=== PATIENT | female | born 1995 | race African-American/Black ===

== ENCOUNTER 2023-07-07 13:34 | Emergency (ER) | payer SELFPAY ==
--- OUTSIDE RECORDS SUMMARY | 2023-07-07 13:38 | XMS REPORT | Continuity of Care Document ---
Author Name Unknown Address [address] [facility] [address] [place] [address] [facility] thconnect Address [address] [facility] [place] [address] Care Team Providers Care Cone Sewer Name Role Phone Pcp, Patient Does Not Have A Primary Care Physic pedro Butch Paniagua P Attending Clinician Unavailable GENARO KAY Attending Clinician Unavailabl chely [id number] Attending Clinician Unavailable [id number] Attending Clinician Unavailable MADELIN RAMIREZ Attending Clinician UnavailPATRICIA Velazco Attending Clinician Unavailable ALFONSO WRAY Attending Clinician Unavailable MD RUBEN Attending Clinician Unavailab le TESTING, [facility] JOSE RAMOS Attending Clinicia angelina Unavailable ALISSA RAMOS Attending Clinician DAREN Colvin Attending Clinician Unavaila ble [id number] Attending Clinician Unavailable RONI OSULLIVAN Attending Clinician Brii bryan Osullivan MD, Roni Izaguirre Attending Clinician [id number] Attending Clinician Unavailable Sandy PERSAUD, Alissaalethea Olmedo Attending Clinician [phone]- [phone] VITALY ZARCO Attending Clinician Unavailable Heriberto [employer]OVER, Sarah Attending Clinician [phone] Doctor Unassigned, [place] Attending Clinician U ivy Kimball [employer]OVER, Luh Attending Clinician [phone] Lab, Adc Fam Pob I Attending Clinician Unavailab aura KNOX, Sharon Attending Clinician [phone] SHARON SIERRA Attending Clinician Unavailable Physician, No Primary or Family Admitting Clinic pedro Unavailable Payers Payer Name Policy Type Policy Number Effective Date Expirati on Date Source ALLIED BENEFIT [id number] 2019 00:00:00 [facility] 2 [id number] 2023 00:00:00 [facility]-ALLIED BENEFITS SYS/PPO 2 [id number] 2021 00:00:00 Problems Condition Name Condition Details Condition Category Status Onset Date Resolution Date Last Treatment Date Treating Clinician Comments Source 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 6 00:00: 00 Jennifer Ibarraold - Externa l PCOS (polycysti c ovarian syndrome) PCOS (polycysti c ovarian syndrome) Disease Active 07-26 00:00: 00 Jennifer Seybold - Externa l Class 1 obesity with serious comorbidit y and body mass index (BMI) of 34.0 to 34.9 in adult Class 1 obesity with serious comorbidit y and body mass index (BMI) of 34.0 to 34.9 in adult Disease Active 07-26 00:00: 00 Jennifer Ibarraold - Externa l No known active problems No known active problems Disease [facility] Allergies, Adverse Reactions, Alerts Allergy Name Allergy Type Status Severity Reaction(s) Onset Date Inactive Date Treating Clinician Comments Source No Known Allergie s DA Active U 06-01 00:00: 00 [facility] NO KNOWN ALLERGIE S Drug Class Active [facility] Social History Social Habit Start Date Stop Date Quantity Comments Source Gender identity Shahana Rose - External Sexual orientation U [facility] Alcohol intake 2023-04-10 00:00:00 2023-04-10 00:00:00 Current drinker of alcohol (finding) Jennifer Rose - External Exposure to SARS-CoV-2 (event) 2022-08-11 00:00:00 2022-08-21 11:15:00 Not sure Jennifer Rose - External History of Social function 2022-08-21 00:00:00 2022-08-21 00:00:00 Jennifer Rose - External Tobacco use and exposure 2021-10-19 00:00:00 2021-10-19 00:00:00 Smokeless tobacco non-user Jennifer Rose - External Tobacco Comment 2021-07-26 00:00:00 2021-07-26 00:00:00 Pt state vaps Jennifer Rose Sex Assigned At 1995 00:00:00 1995 00[birth year]00:00 F Jennifer Rose - External Smoking Status Start Date Stop Date Source Never smoked tobacco Jennifer Rose - External Tobacco smoking consumption unknown [facility] Medications Ordered Medication Name Filled Medication Name Start Date Stop Date Current Medication? Ordering Clinician Indication Dosage Frequency Signature (SIG) Comments Components Source FLUTICASONE PROPIONATE, NASAL, 50 MCG/ACT nasal Suspension 04-10 00:00: 00 Yes [id number] 50ug Use 1 spray (50 mcg total) in each nostril daily. Jennifer jimenez Azelastine HCl 0.1 % nasal Solution 04-10 00:00: 00 Yes [id number] 1{spray } Use 1 spray in each nostril 2 times daily. Jennifer May Externa tony Norethindro ne Acet-Ethiny l Est (MICROGESTI N) 1-20 MG-MCG oral Tablet 2022-02 00:00: 00 Yes [id number] 1{tbl} Take 1 tablet by mouth daily. Jennifer jimenez Spironolact one 50 MG oral Tablet 2022-02 00:00: 00 Yes [id number] 50mg Take 1 tablet (50 mg total) by mouth daily. Jennifer jimenez Spironolact one 50 MG oral Tablet 2022-02 00:00: 00 Yes [id number] 50mg Take 1 tablet (50 mg total) by mouth daily. Jennifer jimenez Norethindro ne Acet-Ethiny l Est (MICROGESTI N) 1-20 MG-MCG oral Tablet 2022-02 00:00: 00 Yes [id number] 1{tbl} Take 1 tablet by mouth daily. Jennifer jimenez Spironolact one 25 MG oral Tablet 2022-02 00:00: 00 02-22 00:00 :00 No 25mg Take 1 tablet (25 mg total) by mouth daily. Jennifer jimenez Norethindro ne Acet-Ethiny l Est (MICROGESTI N) 1-20 MG-MCG oral Tablet 2022-02 00:00: 00 02-22 00:00 :00 No [id number] 1{tbl} Take 1 tablet by mouth daily. Jennifer jimenez Spironolact one 25 MG oral Tablet 07-21 00:00: 00 Yes [id number] 104 25mg Take 1 tablet (25 mg total) by mouth daily Jennifer jimenez Norethindro ne Acet-Ethiny l Est 1-20 MG-MCG oral Tablet 07-21 00:00: 00 Yes [id number] 1{tbl} Take 1 tablet by mouth daily Jennifer jimenez FLUTICASONE PROPIONATE, NASAL, 50 MCG/ACT nasal Suspension 2021-02 00:00: 00 07-21 00:00 :00 No 50ug Use 1 spray (50 mcg total) in each nostril daily Jennifer jimenez Nirmatrelvi r & Ritonavir STANDARD (30) (300/100) Therapy Pack 2021-02 00:00: 07-21 00:00 :00 No Take two 150 mg nirmatrelv ir (pink) tablets with one 100 mg ritonavir (white) tablet by mouth two times daily for 5 days Jennifer jimenez FLUTICASONE PROPIONATE, NASAL, 50 MCG/ACT nasal Suspension 2021-02 00:00: 00 Yes [id number] 50ug Use 1 spray (50 mcg total) in each nostril daily Jennifer jimenez Pseudoeph-B romphen-DM (Bromfed DM) 30-2-10 MG/5ML oral Syrup 2021-02 00:00: 00 Yes [id number] 10mL Q.25D Take 10 mL by mouth 4 times daily as needed Jennifer jimenez guaiFENesin -Codeine 100-10 MG/5ML oral Syrup 2021-02 00:00: 00 07-21 00:00 :00 No 5mL [id number] 3D Take 5 mL by mouth 3 times daily as needed for cough Jennifer jimenez Norethin-Et h Estrad-Fe Biphas (Lo Loestrin Fe) 1 MG-10 MCG / 10 MCG oral Tablet 2021-02 00:00: 00 07-21 00:00 :00 No [id number] 1{tbl} Take 1 tablet by mouth daily Jennifer jimenez Norethin-Et h Estrad-Fe Biphas (Lo Loestrin Fe) 1 MG-10 MCG / 10 MCG oral Tablet 10-19 00:00: 00 01-25 00:00 :00 No [id number] 1{tbl} Take 1 tablet by mouth daily Jennifer jimenez ibuprofen (IBU) tablet 800 mg 10-20 19:30: 00 10-20 18:23 :00 No 800mg 800 mg, Oral, ONCE, 1 dose, 10/21/19 at 1430, AMOS [facility] ondansetron (ZOFRAN-ODT ) disintegrat ing tablet 4 mg 10-20 19:15: 00 10-20 18:23 :00 No 4mg 4 mg, Oral, ONCE, 1 dose, Tu10/21/19 at 1415, Routine [facility] ibuprofen 800 mg tablet 10-20 00:00: 00 Yes [id number] 800mg Take 1 tablet by mouth every 6 (six) hours as needed for Pain (scale 4-6). [facility] ondansetron 4 mg disintegrat ing tablet 10-20 00:00: 00 Yes [id number] 4mg Take 1 tablet by mouth every 8 (eight) hours as needed for Nausea and Vomiting (N/V). [facility] Norethin-Et h Estrad-Fe Biphas (LO LOESTRIN FE OR) 07-18 00:00: 00 Yes [id number] Jennifer Rose Immunizations Ordered Immunization Name Filled Immunization Name Date Status Comments Source HPV 9 (Human Papillomavirus) 2022-06-09 00:00:00 Completed Jennifer Rose - External HPV 9 (Human Papillomavirus) 2022-06-09 00:00:00 Completed Jennifer Ibarraold - External HPV 9 (Human Papillomavirus) 2022-05-09 00:00:00 Completed Jennifer Rose - External HPV 9 (Human Papillomavirus) 2022-05-09 00:00:00 Completed Jennifer Rose - External Influenza Virus Vaccine, Quad, Egg Free 2021-12-18 00:00:00 Completed Jennifer Rose - External Tdap- (Boostrix, Adacel) 2021-12-18 00:00:00 Completed Jennifer Ibarraold - External Influenza Virus Vaccine, Unspecified Formulation 2021-12-18 00:00:00 Completed Jennifer Ibarraold - External Influenza Virus Vaccine, Quad, Egg Free 2021-12-18 00:00:00 Completed Jennifer Rose - External Tdap- (Boostrix, Adacel) 2021-12-18 00:00:00 Completed Jennifer Ibarraold - External Influenza Virus Vaccine, Unspecified Formulation 2021-12-18 00:00:00 Completed Jennifer Rose - External Meningococcal Vaccine- Conjugate(Menactra) 2017-07-29 00:00:00 Completed Jennifer Weissybold - External Meningococcal Vaccine- Conjugate(Menactra) 2017-07-29 00:00:00 Completed Jennifer Weissybold - External HEPATITIS A- PEDI/ADOL 2011-10-19 00:00:00 Completed Jennifer Ibarraold - External HPV 4 (Human Papillomavirus) 2011-10-19 00:00:00 Completed Jennifer Seybold - External HEPATITIS A- PEDI/ADOL 2011-10-19 00:00:00 Completed Jennifer Weissybold - External HPV 4 (Human Papillomavirus) 2011-10-19 00:00:00 Completed Jennifer Weissybold - External HEPATITIS A- PEDI/ADOL 2010-10-10 00:00:00 Completed Jennifer Weissybold - External Tdap- (Boostrix, Adacel) 2010-10-10 00:00:00 Completed Jennifer Weissybold - External Meningococcal Vaccine- Conjugate(Menactra) 2010-10-10 00:00:00 Completed Jennifer Weissybold - External HEPATITIS A- PEDI/ADOL 2010-10-10 00:00:00 Completed Jennifer Rose - External Tdap- (Boostrix, Adacel) 2010-10-10 00:00:00 Completed Jennifer Weissybold - External Meningococcal Vaccine- Conjugate(Menactra) 2010-10-10 00:00:00 Completed Jennifer Seybold - External DTaP Unspecified 2001-02-28 00:00:00 Completed Jennifer Seybold - External IPV- Inactivated Polio Vaccine 2001-02-28 00:00:00 Completed Jennifer Weissybold - External MMR- Measles, Mumps, Rubella 2001-02-28 00:00:00 Completed Jennifer Seybold - External DTaP Unspecified 2001-02-28 00:00:00 Completed Jennifer Seybold - External IPV- Inactivated Polio Vaccine 2001-02-28 00:00:00 Completed Jennifer Seybold - External MMR- Measles, Mumps, Rubella 2001-02-28 00:00:00 Completed Jennifer Seybold - External Varicella Vaccine 2000-10-25 00:00:00 Completed Jennifer Seybold - External Varicella Vaccine 2000-10-25 00:00:00 Completed Jennifer Seybold - External Varicella Vaccine 1999-10-11 00:00:00 Completed Jennifer Seybold - External Varicella Vaccine 1999-10-11 00:00:00 Completed Jennifer Seybold - External Hib (HbOC) 1998-07-20 00:00:00 Completed Jennifer Seybold - External DTaP Unspecified 1998-07-20 00:00:00 Completed Jennifer Seybold - External MMR- Measles, Mumps, Rubella 1998-07-20 00:00:00 Completed Jennifer Seybold - External Hib (HbOC) 1998-07-20 00:00:00 Completed Jennifre Seybold - External DTaP Unspecified 1998-07-20 00:00:00 Completed Jennifer Seybold - External MMR- Measles, Mumps, Rubella 1998-07-20 00:00:00 Completed Jennifer Seybold - External Hib (HbOC) 1997 00:00:00 Completed Jennifer Seybold - External Hepatitis B, Adolescent Or Pediatric 1995 00:00:00 Completed Jennifer Seybold - External DTaP Unspecified 1997 00:00:00 Completed Jennifer Seybold - External IPV- Inactivated Polio Vaccine 1997 00:00:00 Completed Jennifer Seybold - External Hib (HbOC) 1997 00:00:00 Completed Jennifer Seybold - External Hepatitis B, Adolescent Or Pediatric 1995 00:00:00 Completed Jennifer Seybold - External DTaP Unspecified 1997 00:00:00 Completed Jennifer Seybold - External IPV- Inactivated Polio Vaccine 1997 00:00:00 Completed Jennifer Seybold - External Hib (HbOC) 1997 00:00:00 Completed Jennifer Seybold - External DTaP Unspecified 1997 00:00:00 Completed Jennifer Seybold - External IPV- Inactivated Polio Vaccine 1997 00:00:00 Completed Jennifer Seybold - External Hib (HbOC) 1997 00:00:00 Completed Jennifer Seybold - External DTaP Unspecified 1997 00:00:00 Completed Jennifer Seybold - External IPV- Inactivated Polio Vaccine 1997 00:00:00 Completed Jennifer Seybold - External Hib (HbOC) 1997 00:00:00 Completed Jennifer Seybold - External Hepatitis B, Adolescent Or Pediatric 1997 00:00:00 Completed Jennifer Seybold - External DTaP Unspecified 1997 00:00:00 Completed Jennifer Seybold - External IPV- Inactivated Polio Vaccine 1997 00:00:00 Completed Jennifer Seybold - External Hib (HbOC) 1997 00:00:00 Completed Jennifer Weissybold - External Hepatitis B, Adolescent Or Pediatric 1995 00:00:00 Completed Jennifer Seybold - External DTaP Unspecified 1997 00:00:00 Completed Jennifer Weissybold - External IPV- Inactivated Polio Vaccine 1997 00:00:00 Completed Jennifer Weissybold - External Hepatitis B, Adolescent Or Pediatric 1995 00:00:00 Completed Jennifer Seybold - External Hepatitis B, Adolescent Or Pediatric 1997 00:00:00 Completed Jennifer Weissybold - External Varicella Vaccine Unknown Completed [place] Seybold - External Varicella Vaccine Unknown Completed [place] Seybold - External Tdap- (Boostrix, Adacel) Unknown Completed Jennifer Seybold - External Tdap- (Boostrix, Adacel) Unknown Completed Jennifer Weissybold - External IPV- Inactivated Polio Vaccine Unknown Completed Jennifer Seybold - External IPV- Inactivated Polio Vaccine Unknown Completed Jennifer Seybold - External IPV- Inactivated Polio Vaccine Unknown Completed Jennifer Weissybold - External IPV- Inactivated Polio Vaccine Unknown Completed Jennifer eWissybold - External MMR- Measles, Mumps, Rubella Unknown Completed Jennifer Seybold - External MMR- Measles, Mumps, Rubella Unknown Completed Jennifer Seybold - External Meningococcal Vaccine- Conjugate(Menactra) Unknown Completed Jennifer Gandhi eybold - External Meningococcal Vaccine- Conjugate(Menactra) Unknown Completed Jennifer S eybold - External Influenza Virus Vaccine, Unspecified Formulation Unknown Completed Jennifer Seybold - External HPV 9 (Human Papillomavirus) Unknown Completed Jennifer Seybo ld - External HPV 9 (Human Papillomavirus) Unknown Completed Jennifer ybo ld - External HPV 4 (Human Papillomavirus) Unknown Completed Jennifer Weissybo ld - External Hib (HbOC) Unknown Completed Jennifer Se ybold - External Hib (HbOC) Unknown Completed Jennifer Se ybold - External Hib (HbOC) Unknown Completed Jennifer Se ybold - External Hib (HbOC) Unknown Completed Jennifer Se ybold - External Hepatitis B, Adolescent Or Pediatric Unknown Completed Jennifer Seybold - External Hepatitis B, Adolescent Or Pediatric Unknown Completed Jennifer Seybold - External Hepatitis B, Adolescent Or Pediatric Unknown Completed Jennifer Seybold - External HEPATITIS A- PEDI/ADOL Unknown Completed Jennifer Seybold - External HEPATITIS A- PEDI/ADOL Unknown Completed Jennifer Seybold - External Influenza Virus Vaccine, Quad, Egg Free Unknown Completed Jennifer Seybold - External DTaP Unspecified Unknown Completed Julio sey Seybold - External DTaP Unspecified Unknown Completed Julio sey Seybold - External DTaP Unspecified Unknown Completed Julio sey Seybold - External DTaP Unspecified Unknown Completed Jluio sey Seybold - External DTaP Unspecified Unknown Completed Julio sey Seybold - External Varicella Vaccine Unknown Completed [place] Seybold - External Varicella Vaccine Unknown Completed [place] Seybold - External Tdap- (Boostrix, Adacel) Unknown Completed Jennifer Seybold - External Tdap- (Boostrix, Adacel) Unknown Completed Jennifer Seybold - External IPV- Inactivated Polio Vaccine Unknown Completed Jennifer Seybold - External IPV- Inactivated Polio Vaccine Unknown Completed Jennifer Seybold - External IPV- Inactivated Polio Vaccine Unknown Completed Jennifer Seybold - External IPV- Inactivated Polio Vaccine Unknown Completed Jennifer ybold - External MMR- Measles, Mumps, Rubella Unknown Completed Jennifer Seybold - External MMR- Measles, Mumps, Rubella Unknown Completed Jennifer Seybold - External Meningococcal Vaccine- Conjugate(Menactra) Unknown Completed Jennifer S eybold - External Meningococcal Vaccine- Conjugate(Menactra) Unknown Completed Jennifer S eybold - External Influenza Virus Vaccine, Unspecified Formulation Unknown Completed Jennifer Seybold - External HPV 9 (Human Papillomavirus) Unknown Completed Jennifer Seybo ld - External HPV 9 (Human Papillomavirus) Unknown Completed Jennifer ybo ld - External HPV 4 (Human Papillomavirus) Unknown Completed Jennifer ybo ld - External Hib (HbOC) Unknown Completed Jennifer Se ybold - External Hib (HbOC) Unknown Completed Jennifer Se ybold - External Hib (HbOC) Unknown Completed Jennifer Se ybold - External Hib (HbOC) Unknown Completed Jennifer Se ybold - External Hepatitis B, Adolescent Or Pediatric Unknown Completed Jennifer Seybold - External Hepatitis B, Adolescent Or Pediatric Unknown Completed Jennifer Seybold - External Hepatitis B, Adolescent Or Pediatric Unknown Completed Jennifer Seybold - External HEPATITIS A- PEDI/ADOL Unknown Completed Jennifer Seybold - External HEPATITIS A- PEDI/ADOL Unknown Completed Jennifer Seybold - External Influenza Virus Vaccine, Quad, Egg Free Unknown Completed Jennifer Seybold - External DTaP Unspecified Unknown Completed Julio sey Seybold - External DTaP Unspecified Unknown Completed Julio sey Seybold - External DTaP Unspecified Unknown Completed Julio sey Seybold - External DTaP Unspecified Unknown Completed Julio sey Seybold - External DTaP Unspecified Unknown Completed Julio sey Seybold - External Varicella Vaccine Unknown Completed [place] Seybold - External Varicella Vaccine Unknown Completed [place] Seybold - External Tdap- (Boostrix, Adacel) Unknown Completed Jennifer Seybold - External Tdap- (Boostrix, Adacel) Unknown Completed Jennifer Seybold - External IPV- Inactivated Polio Vaccine Unknown Completed Jennifer Seybold - External IPV- Inactivated Polio Vaccine Unknown Completed Jennifer Seybold - External IPV- Inactivated Polio Vaccine Unknown Completed Jennifer Seybold - External IPV- Inactivated Polio Vaccine Unknown Completed Jennifer Seybold - External MMR- Measles, Mumps, Rubella Unknown Completed Jennifer Seybold - External MMR- Measles, Mumps, Rubella Unknown Completed Jennifer Seybold - External Meningococcal Vaccine- Conjugate(Menactra) Unknown Completed Jennifer S eybold - External Meningococcal Vaccine- Conjugate(Menactra) Unknown Completed Jennifer S eybold - External Influenza Virus Vaccine, Unspecified Formulation Unknown Completed Jennifer Seybold - External HPV 9 (Human Papillomavirus) Unknown Completed Jennifer Seybo ld - External HPV 9 (Human Papillomavirus) Unknown Completed Jennifer ybo ld - External HPV 4 (Human Papillomavirus) Unknown Completed Jennifer ybo ld - External Hib (HbOC) Unknown Completed Jennifer Se ybold - External Hib (HbOC) Unknown Completed Jennifer Se ybold - External Hib (HbOC) Unknown Completed Jennifer Se ybold - External Hib (HbOC) Unknown Completed Jennifer Se ybold - External Hepatitis B, Adolescent Or Pediatric Unknown Completed Jennifer Seybold - External Hepatitis B, Adolescent Or Pediatric Unknown Completed Jennifer Seybold - External Hepatitis B, Adolescent Or Pediatric Unknown Completed Jennifer Seybold - External HEPATITIS A- PEDI/ADOL Unknown Completed Jennifer Seybold - External HEPATITIS A- PEDI/ADOL Unknown Completed Jennifer Weissybold - External Influenza Virus Vaccine, Quad, Egg Free Unknown Completed Jennifer Seybold - External DTaP Unspecified Unknown Completed Julio weissy Seybold - External DTaP Unspecified Unknown Completed Julio sey Seybold - External DTaP Unspecified Unknown Completed Julio sey Seybold - External DTaP Unspecified Unknown Completed Julio sey Seybold - External DTaP Unspecified Unknown Completed Julio weissy Seybold - External Vital Signs Vital Name Observation Time Observation Value Comments S ource Systolic blood pressure 2023-02-22 16:48:00 110 mm[Hg] Jennifer Seybo ld - External Diastolic blood pressure 2023-02-22 16:48:00 80 mm[Hg] Jennifer Seybo ld - External Heart rate 2023-02-22 16:48:00 73 /min Kelse y Seybold - External Body temperature 2023-02-22 16:48:00 36.78 Kristine Jennifer Seybold - External Respiratory rate 2023-02-22 16:48:00 16 /min Jennifer Seybold - External Body height 2023-02-22 16:48:00 165.1 cm Shahana ey Seybold - External Body weight 2023-02-22 16:48:00 95.8 kg Shahana ey Seybold - External BMI 2023-02-22 16:48:00 35.15 kg/m2 Shahana ey Seybold - External Systolic blood pressure 2022-08-21 16:18:00 110 mm[Hg] Jennifer Seybo ld - External Diastolic blood pressure 2022-08-21 16:18:00 58 mm[Hg] Jennifer Seybo ld - External Heart rate 2022-08-21 16:18:00 98 /min Kelse y Seybold - External Body temperature 2022-08-21 16:18:00 37.06 Kristine Jennifer Seybold - External Respiratory rate 2022-08-21 16:18:00 24 /min Jennifer Seybold - External Body height 2022-08-21 16:18:00 165.1 cm Shahana ey Seybold - External Body weight 2022-08-21 16:18:00 93.441 kg Shahana ey Seybold - External BMI 2022-08-21 16:18:00 34.28 kg/m2 Shahana ey Seybold - External Systolic blood pressure 2022-07-21 15:26:00 114 mm[Hg] Jennifer Seybo ld - External Diastolic blood pressure 2022-07-21 15:26:00 74 mm[Hg] Jennifer Seybo ld - External Heart rate 2022-07-21 15:26:00 70 /min Kelse y Seybold - External Body temperature 2022-07-21 15:26:00 36.11 Kristine Jennifer Seybold - External Respiratory rate 2022-07-21 15:26:00 18 /min Jennifer Seybold - External Body height 2022-07-21 15:26:00 165.1 cm Shahana ey Seybold - External Body weight 2022-07-21 15:26:00 97.977 kg Shahana ey Seybold - External BMI 2022-07-21 15:26:00 35.94 kg/m2 Shahana ey Seybold - External Systolic blood pressure 2022-01-25 14:47:00 113 mm[Hg] Jennifer Seybo ld - External Diastolic blood pressure 2022-01-25 14:47:00 76 mm[Hg] Jennifer Seybo ld - External Heart rate 2022-01-25 14:47:00 78 /min Kelse y Seybold - External Body temperature 2022-01-25 14:47:00 36.5 Kristine Jennifer Seybold - External Respiratory rate 2022-01-25 14:47:00 16 /min Jennifer Seybold - External Body height 2022-01-25 14:47:00 165.1 cm Shahana ey Seybold - External Body weight 2022-01-25 14:47:00 94.802 kg Shahana ey Seybold - External BMI 2022-01-25 14:47:00 34.78 kg/m2 Shahana ey Seybold - External Systolic blood pressure 2021-07-26 15:52:00 106 mm[Hg] Jennifer avelar Diastolic blood pressure 2021-07-26 15:52:00 70 mm[Hg] Jennifer avelar Heart rate 2021-07-26 15:52:00 88 /min Shawna Rose Body temperature 2021-07-26 15:52:00 36.56 Kristine Jennifer Rose Respiratory rate 2021-07-26 15:52:00 18 /min Jennifer Rose Body height 2021-07-26 15:52:00 165.1 cm Shahana Rose Body weight 2021-07-26 15:52:00 93.169 kg Shahana Rose BMI 2021-07-26 15:52:00 34.18 kg/m2 Shahana Rose Oxygen saturation in Arterial blood by Pulse oximetry 2021-07-26 15:52:00 98 /min Jennifer avelar Systolic blood pressure 2019-10-21 19:32:28 129 mm[Hg] [facility] Diastolic blood pressure 2019-10-21 19:32:28 92 mm[Hg] [facility] Heart rate 2019-10-21 19:32:28 98 /min [facility] Respiratory rate 2019-10-21 19:32:28 17 /min [facility] Oxygen saturation in Arterial blood by Pulse oximetry 2019-10-21 19:32:28 99 /min [facility] Body temperature 2019-10-21 17:55:00 36.89 Kristine [facility] Body height 2019-10-21 17:55:00 165.1 cm [facility] Body weight 2019-10-21 17:55:00 93.895 kg [facility] BMI 2019-10-21 17:55:00 34.45 kg/m2 [facility] Procedures Procedure Date / Time Performed Performing Clinicia n Source NOTICE OF PRIVACY PRACTICES 2019-10-21 17:41:04 Doctor Unassigned, [place] [facility] CONSENT/REFUSAL FOR DIAGNOSIS AND TREATMENT 2019-10-21 17:40:43 Doctor Unassigned, [place] [facility] Encounters Start Date/Time End Date/Time Encounter Type Admission Type Attending Clinicians Care Facility Care Department Encounter ID Source 2020-12-24 14:25:25 Emergency [facility] [id number] [facility] 2023-06-02 13:28:00 2023-06-02 16:07:00 Emergency Butch Downing [facility] CARTER [id number] [facility] 2023-05-19 00:00:00 2023-05-19 00:00:00 Outpatient GENARO KAY [id number] [facility] 2023-05-09 16:15:00 2023-05-09 16:15:00 Outpatient GENARO KAY [id number] [facility] 2023-05-03 14:40:00 2023-05-03 14:40:00 Outpatient LAB47 JENNIFER BASILIO [id number] [facility] 2023-05-01 14:30:00 2023-05-01 14:30:00 Outpatient LAB08 JENNIFER BASILIO [id number] [facility] 2023-05-01 13:45:00 2023-05-01 13:45:00 Outpatient LAB08 JENNIFER BASILIO [id number] [facility] 2023-04-23 14:45:00 2023-04-23 14:45:00 Outpatient GENARO KAY [id number] [facility] 2023-04-19 09:45:00 2023-04-19 09:45:00 Outpatient MADELIN RAMIREZ [id number] [facility] 2023-04-18 10:15:00 2023-04-18 10:15:00 Outpatient PATRICIA ORLANDO [id number] [facility] 2023-04-10 13:30:00 2023-04-10 13:30:00 Outpatient ALFONSO WRAY [id number] [facility] 2023-03-26 11:00:00 2023-03-26 11:00:00 Outpatient GENARO KAY [id number] [facility] 2023-02-22 11:45:00 2023-02-22 11:45:00 Outpatient LAB08 JENNIFER JENNIFER [id number] [facility] 2023-02-22 10:45:00 2023-02-22 10:45:00 Outpatient ELIZAGENARO ORTIZ JENNIFER [id number] [facility] 2023-01-16 00:00:00 2023-01-16 00:00:00 Outpatient ELIZA, GENARO JENNIFER JENNIFER [id number] [facility] 2022-10-26 00:00:00 2022-10-26 00:00:00 Outpatient MD JENNIFER SINGH [id number] [facility] 2022-10-26 00:00:00 2022-10-26 00:00:00 Outpatient ELIZA, GENARO JENNIFER BASILIO [id number] [facility] 2022-10-19 00:00:00 2022-10-19 00:00:00 Outpatient ELIZA, GENARO JENNIFER BASILIO [id number] [facility] 2022-09-28 00:00:00 2022-09-28 00:00:00 Outpatient ELIZA, GENARO JENNIFER BASILIO [id number] [facility] 2022-08-21 11:45:00 2022-08-21 11:45:00 Outpatient LAB08 JENNIFER BASILIO [id number] [facility] 2022-08-21 11:15:00 2022-08-21 11:15:00 Outpatient ELIZA, GENARO JENNIFER BASILIO [id number] [facility] 2022-07-21 10:30:00 2022-07-21 10:30:00 Outpatient ELIZA, GENARO JENNIFER BASILIO [id number] [facility] 2022-07-21 00:00:00 2022-07-21 00:00:00 Outpatient ELIZA, GENARO JENNIFER BASILIO [id number] [facility] 2022-02-23 15:40:00 2022-02-23 15:40:00 [facility] BAS[facility] [id number] [facility] 2022-02-23 10:30:00 2022-02-23 10:30:00 Outpatient ALISSA RAMOS JENNIFER BASILIO [id number] [facility] 2022-02-23 00:00:00 2022-02-23 00:00:00 Outpatient DAREN ALLEN JENNIFER BASILIO [id number] [facility] 2022-01-25 09:40:00 2022-01-25 09:40:00 Outpatient GSA81-KIY JENNIFER BASILIO [id number] [facility] 2022-01-25 09:00:00 2022-01-25 09:00:00 Outpatient LING-SMI AHSAN, RONI BASILIO [id number] [facility] 2022-01-18 15:45:00 2022-01-18 15:45:00 Outpatient JENNIFER BASILIO [id number] [facility] 2022-01-11 11:00:00 2022-01-11 11:00:00 Outpatient JENNIFER BASILIO [id number] [facility] 2022-01-04 15:45:00 2022-01-04 15:45:00 Outpatient OKORAALISSA ARREDONDO [id number] [facility] 2021-12-30 00:00:00 2021-12-30 00:00:00 Outpatient LING-SMI THRONI [id number] [facility] 2021-12-30 00:00:00 2021-12-30 00:00:00 Outpatient MD JENNIFER SINGH [id number] [facility] 2021-12-26 14:30:00 2021-12-26 14:30:00 Outpatient LAB47 JENNIFER BASILIO [id number] [facility] 2021-12-06 11:15:00 2021-12-06 11:15:00 Outpatient OKORAARNULFO, ALISSAAlethea BASILIO [id number] [facility] 2021-10-19 14:15:00 2021-10-19 14:30:00 Office Visit Ling-Smi thRoni [id number] [facility] 2021-09-14 08:00:00 2021-09-14 08:00:00 Outpatient JENNIFER BASILIO [id number] [facility] 2021-08-10 14:50:00 2021-08-10 14:50:00 Outpatient LAB JENNIFER JENNIFER [id number] [facility] 2021-07-26 11:35:00 2021-07-26 11:35:00 Outpatient LAB47 JENNIFER BASILIO [id number] [facility] 2021-07-26 11:30:00 2021-07-26 11:30:00 Outpatient JIP64-SLB JENNIFER JENNIFER [id number] [facility] 2021-07-26 10:45:00 2021-07-26 11:15:00 Office Visit Alissa Ramos 1.0.114 350.1.13.13 [id number] [id number] [facility] 2021-07-20 12:00:00 2021-07-20 12:00:00 Outpatient VITALY ZARCO [id number] [facility] 2021-07-20 11:00:00 2021-07-20 11:00:00 Outpatient VITALY ZARCO [id number] [facility] 2019-10-21 12:56:00 2019-10-21 15:05:00 Emergency LouisSarah hanley [facility] [id number] [id number] [facility] 2019-10-21 00:00:00 2019-10-21 00:00:00 Orders Only Doctor Unassigned, [place] [facility] 1.840.114 350.1.13.10 [id number] [id number] [facility] 2019-09-10 00:00:00 2019-09-10 00:00:00 Patient Secure Msg Doctor Unassigned, [place] [facility] OFFICE [facility] ONE 1.114 350.1.13.10 [id number] [id number] [facility] 2019-09-10 00:00:00 2019-09-10 00:00:00 Telephone Luh Kimball [facility] Office Building One 1.114 350.1.13.10 [id number] [id number] [facility] 2019-09-09 07:26:10 2019-09-09 07:46:10 Laboratory Only Lab, [facility] One [id number] [id number] [id number] [id number] [facility] 2019-09-09 07:20:00 2019-09-09 07:20:00 Outpatient SHARON CARLSON [facility] [id number] [facility] 2019-09-09 00:00:00 2019-09-09 00:00:00 Letter (Out) Doctor Unassigned, [employer] [facility] 1.84.114 350.1.13.10 [id number] [id number] [facility] 2019-09-08 11:20:00 2019-09-08 11:20:00 Outpatient SHARON CARLSON [facility] [id number] [facility] Results Test Description Test Time Test Comments Results Result Co mments Source INFLUENZA A B [id number] 08:46:00* Test Item Value Reference Range Interpretation Comme nts POC INFLUENZA A ANTIGEN (test code = EDINFLAGA) Negative Negative POC INFLUENZA B ANTIGEN (test code = EDINFLAGB) Negative Negative Testing Performe d at:[facility] 18/[address], [place] [address] ----- POC COVID19 [id number] 08:46:00* Test Item Value Reference Range Interpretation Comme nts POC COVID19 AG (test code = [id number]) Negative Negative Testing Perfo rmed at:[facility] 24/ [address], [place] [address] - Notes Date/Time Note Provider Source 2023-06-02 14:21:00 [id number] 19-06-05T14:21:00 [facility] REPORTREPORT#:[id number] REPORT STATUS: SignedDATE:06/02/23 TIME: 1421 PATIENT: ALONZO MARIANO UNIT #: [id number]#: [id number] ROOM/BED:AGE: 28 SEX: F PCP PHYS: No Primary or Family PhysicianSERVICE AUTHOR: Butch Paniagua MD * ALL edits or amendments must be made on the electronic/computer document * ZLQ-Czf-Hzbr Illness GeneralInitial Greet Date/Time 06/02/23 1338 PresentationChief Complaint Nasal congestion, Sore throat, stuff right ear Free Text HPI NotesFree Text HPI NotesSeveral days possible allergies as well as stuffy right ear mild sore throat which is better no fever Review of Systems Free Text ROS NotesFree Text ROS NotesConstitutional: No fever or chills; no malaise HEENT: No Headache, no earache but some vague decreased hearing stiffness right ear, mild sore throat which is improved, no eye complaints. Chest: No cough, no shortness of breath, no chest pain. Abdomen: No abdominal pain. No nausea, vomiting, or diarrhea. : No dysuria or pelvic complaints. Extremities: No leg swelling or leg pain. No upper extremity pain or swelling. Skin: No rash. No erythema. Neuro: No acute weakness, numbness or other new neuro complaints. Psych: No suicidal ideation; Thought content normal. Past Medical History - AdultStated Complaint FLU LIKE SYMPTOMSAllergiesCoded Allergies:No Known Allergies (06/02/23) Calculated Suicide Risk (nurs) No riskSmoking status for patients 13 years old or older: Never Smoker Physical Exam Vital SignsVital SignsFirst Documented: Result Date Time Pulse Ox 100 06/01 1330 B/P 137/89 / 1330 B/P Mean 105 04/ 1330 O2 Delivery Room air 06/01 1330 Temp 36.8 06/01 1330 Pulse 101 04/ 1330 Resp 16 06/01 1330 Last Documented: Result Date Time Pulse Ox 100 06/01 1330 B/P 137/89 / 1330 B/P Mean 105 /06 1330 O2 Delivery Room air / 1330 Temp 36.8 06/01 1330 Pulse 101 04/ 1330 Resp 16 06 1330 Review of Vital Signs Reviewed Focused PEGeneral/Const General/Const Awake, AlertEyes Eyes No photophobia, No scleral icterus, Conjunctiva NL, Cornea clearEars/Nose/Throat Ears/Nose/Throat Pharynx NL Text/Dict NotesRight TM retracted no erythema no effusion; some nasal congestionMS Neck Neck Supple, No meningismus, No adenopathyResp/Chest Respiratory/Chest Breath sounds NL, Breath sounds = bilat, No respiratory distress, No rales, No rhonchi, No wheezing, No retractionsCardiovascular Cardiovascular Regular rhythm, Heart sounds NL, No gallop, No murmursAbdomen/GI Abdomen/GI Soft, Non-tenderSkin Skin No rashNeurologic Neurologic Speech NL Interpretation Diagnostics Lab Results InterpretationResultsMicrobiology: Date/Time Procedure - Status Source Growth 06/01 1425 Group A Streptococcus Culture - RECD THROAT Re-Evaluation [facility] ED CourseMedication(s) OrderedMedication(s) Ordered:Hormones And Synthetic Substit Sig/Bhavin Start time Last Medication Dose Route Stop Time Status Admin Prednisone 40 MG X1ED STA 06/01 1556 DC / PO 06/01 1557 1604 Patient Discharge Departure Vital Signs/ConditionVital SignsFirst Documented: Result Date Time Pulse Ox 100 06/01 1330 B/P 137/89 04/ 1330 B/P Mean 105 /06 1330 O2 Delivery Room air / 1330 Temp 36.8 04/ 1330 Pulse 101 04/06 1330 Resp 16 / 1330 Last Documented: Result Date Time Pulse Ox 100 06/01 1330 B/P 137/89 04/ 1330 B/P Mean 105 /06 1330 O2 Delivery Room air 04 1330 Temp 36.8 04/ 1330 Pulse 101 04/06 1330 Resp 16 06/01 1330 All vital signs available at the time of this entry have been reviewed. Condition Stable Clinical ImpressionClinical ImpressionPrimary Impression: EUSTACHIAN DYSFUNCTION LEFT EARTime of Impression 155 Disposition DecisionDischarge )( Discharged to Home Yes )( Time 155 )( Date 06/02/23 Discharge/Care PlanCounseled Regarding Diagnosis, Lab results, Prescriptions, Need for follow-up, When to return to ED(Auto) PrescriptionsCurrent Visit ScriptspredniSONE 20 MG PO DAILY predniSONE 20 MG PO DAILY #6 TABS OXYMETAZOLINE (AFRIN 0.05% NASAL) 1 SPRAY NASAL BID PRN PRN x 3 days for nasal congestion OXYMETAZOLINE (AFRIN 0.05% NASAL) 1 SPRAY NASAL BID PRN PRN x 3 days for nasal congestion #15 ML LORATADINE ODT (ALAVERT ODT) 10 MG PO DAILY LORATADINE ODT (ALAVERT ODT) 10 MG PO DAILY #30 TABS Patient Instructions ED Allergic Rhinitis, Eustachian Tube Obstruction ChAdditional InstructionsRecommend you follow-up with your primary care doctor in the next 7 to 10 days. If you not have 1 referrals are provided I recommend you go to [facility] or your other pharmacy of choice and get a Shara pot follow the instructions on the box. Please use distilled waterReferralsProvider Referral: Jani Strickland MD Address: [address] [place] [address] [place] [address] Provider Referral: Jamie Rocheesilas [facility] Address: [address], [address] [place] [address] Provider Referral: Cirilo Clayton DO Address: [address] [facility] [place] [address] Provider Referral: Ahmet Gibson MD Address: [address] [place] [address] Provider Referral: Francois Campbell [facility] Address: [address] [place] [address] Provider Referral: Daniel Doe MD Follow-Up: 8-12 Days Address: [address] [facility] [address] [place] [address] at 1713RPT #:[id number] OF REPORTB[facility] department [id number]:21:00C.[id number] -0826AVAvailable for patient [id number]:13:38 HCAKW 2023-02-22 10:47:53 [id number] b4A/csnd+yGeTvmx3vE tPXGcMQTMIad8syUwpyxcjLzA3570-88-21W96: 47:53 Chief ComplaintPatient presents withPhysicalfastingAilyn Hernandez CMA I 02/22/2023 10:48 AM [id number] YilxAH3403-84-80A12:52:07Nurse [id number] for patient [id number] NoteLNNARRATIVEFormatted C-CDA narrative [facility] [place], [place] [id number] 28T15:52:[id number]. 15|[id number] _[id number] [facility]"
--- NOTE | 2023-07-07 14:15 | ER ---
Nurse's Notes [facility] Name: Brennon Soto Age: 28 yrs Sex: Female : 1995 Arrival Date: 07/07/2023 Time: 13:34 Bed 20 Private MD: Diagnosis: Cutaneous abscess of groin Presentation: 07/06 13:42 Chief complaint: Patient states: Abscess to L groin area getting worse since Sunday. No ll1 fever. Coronavirus screen: Client denies travel out of the [place] in the last 14 days. At this time, the client does not indicate any symptoms associated with coronavirus-19. Ebola Screen: Patient denies travel to an Ebola-affected area in the 21 days before illness onset. Initial Sepsis Screen: Does the patient meet any 2 criteria? No. Patient's initial sepsis screen is negative. Does the patient have a suspected source of infection? No. Patient's initial sepsis screen is negative. Risk Assessment: Do you want to hurt yourself or someone else? Patient reports no desire to harm self or others. Onset of symptoms was July 02, 2023. 13:42 Method Of Arrival: Ambulatory ll1 13:42 Acuity: LANNY 4 ll1 Triage Assessment: 13:44 General: Appears in no apparent distress. uncomfortable, Behavior is calm, cooperative. rs5 Pain: Complains of pain in left inner thigh Pain currently is 3 out of 10 on a pain scale. Quality of pain is described as aching, Is continuous. Historical: - Allergies: 13:42 No Known Allergies; ll1 - PMHx: 13:42 None; ll1 - PSHx: 13:42 None; ll1 - Immunization history:: Adult Immunizations up to date. - Infectious Disease History:: Denies. - Social history:: Smoking status: Reported history of juuling and/or vaping. Patient denies any tobacco usage or history of. Screenin:45 [facility] ED Fall Risk Assessment (Adult) History of falling in the last 3 months, rs5 including since admission No falls in past 3 months (0 pts) Confusion or Disorientation No (0 pts) Intoxicated or Sedated No (0 pts) Impaired Gait No (0 pts) Mobility Assist Device Used No (0 pt) Altered Elimination No (0 pt) Score/Fall Risk Level 0 - 2 = Low Risk Oriented to surroundings, Maintained a safe environment. Abuse screen: Denies threats or abuse. Nutritional screening: No deficits noted. Tuberculosis screening: No symptoms or risk factors identified. Assessment: 13:44 General: Appears in no apparent distress. uncomfortable, Behavior is calm, cooperative. rs5 Pain: Complains of pain in left inner thigh Pain currently is 3 out of 10 on a pain scale. Quality of pain is described as aching, Is continuous. Neuro: Level of Consciousness is awake, alert, obeys commands, Oriented to person, place, time, situation. Cardiovascular: Patient's skin is warm and dry. Rhythm is regular. Respiratory: Respiratory effort is even, unlabored, Respiratory pattern is regular, symmetrical. GI: Abdomen is round non-distended, Abd is soft and non tender. : No signs and/or symptoms were reported regarding the genitourinary system. EENT: No signs and/or symptoms were reported regarding the EENT system. Derm: Skin is intact, Skin is dry, Skin is normal, Skin temperature is warm. Derm: Abscess located on left upper inner thigh is quarter sized. Musculoskeletal: Range of motion: intact in all extremities. 14:20 Reassessment: Patient and/or family updated on plan of care and expected duration. Pain rs5 level reassessed. Patient is alert, oriented x 3, equal unlabored respirations, skin warm/dry/pink. Vital Signs: 13:42 BP 114 / 71; Pulse 100; Resp 17; Temp 97.7; Pulse Ox 100% ; Weight 95.25 kg; Height 5 ll1 ft. 5 in. ; Pain 7/10; 14:20 BP 117 / 74; Pulse 80; Resp 18; Pulse Ox 99% on R/A; rs5 13:42 Body Mass Index 34.95 (95.25 kg, 165.1 cm) ll1 13:42 Pain Scale: Adult ll1 ED Course: 13:35 Patient arrived in ED. ec2 13:40 Kathy Lombardi FNP is [facility]. jh7 13:40 Martínez Anand MD is Attending Physician. jh7 13:43 Triage completed. ll1 13:43 Arm band placed on Patient placed in an exam room, on a stretcher. ll1 13:45 Patient has correct armband on for positive identification. Placed in gown. Bed in low rs5 position. Call light in reach. Side rails up X2. 13:45 No provider procedures requiring assistance completed. rs5 13:53 Mo Carcamo, RN is Primary Nurse. rs5 14:30 Patient did not have IV access during this emergency room visit. rs5 Administered Medications: No medications were administered Medication: 13:45 VIS not applicable for this client. rs5 Outcome: 14:14 Discharge ordered by . [facility] 14:30 Discharged to home ambulatory, with family, rs5 14:30 Condition: stable 14:30 Discharge instructions given to patient, family, Instructed on discharge instructions, follow up and referral plans. medication usage, Demonstrated understanding of instructions, follow-up care, medications, Prescriptions given X 2, 14:31 Patient left the ED. rs5 Signatures: Fany Mata, RN RN ll1 Kathy Lombardi, TECHNOLOGY SERVICES MANAGER TECHNOLOGY SERVICES MANAGER 7 Mo Carcamo, RN RN rs5 Martínez Anand MD MD ec2 Corrections: (The following items were deleted from the chart) 15:00 12:12 BP 117 / 74; Pulse 80bpm; Resp 18bpm; Pulse Ox 99% RA; rs5 rs5
--- NOTE | 2023-07-07 14:15 | EDPHYS ---
Physician Documentation [facility] Name: Brennon Soto Age: 28 yrs Sex: Female : 1995 Arrival Date: 07/07/2023 Time: 13:34 Bed 20 Private MD: ED Physician Martínez Anand HPI: 07/06 13:42 This 28 yrs old Black Female presents to ER via Ambulatory with complaints of abscess. jh7 13:42 Onset: The symptoms/episode began/occurred 1 week(s) ago. Associated signs and jh7 symptoms: Pertinent positives: erythema, swelling, Pertinent negatives: fever. 28-year-old female with no past medical history presents to the ER for possible abscess on her left inner groin area. The patient reports that she shaves in that area and is concerned about an infected ingrown hair. Denies fever.. Historical: - Allergies: 13:42 No Known Allergies; ll1 - PMHx: 13:42 None; ll1 - PSHx: 13:42 None; ll1 - Immunization history:: Adult Immunizations up to date. - Infectious Disease History:: Denies. - Social history:: Smoking status: Reported history of juuling and/or vaping. Patient denies any tobacco usage or history of. ROS: 13:42 Constitutional: Per HPI jh7 13:42 Skin: Positive for abscess, cellulitis, of the left groin/inner thigh, Exam: 13:42 Constitutional: This is a well developed, well nourished patient who is awake, alert, jh7 and in no acute distress. Head/Face: Normocephalic, atraumatic. Neck: Trachea midline, no thyromegaly or masses palpated, and no cervical lymphadenopathy. Supple, full range of motion without nuchal rigidity, or vertebral point tenderness. No Meningismus. Cardiovascular: Regular rate and rhythm with a normal S1 and S2. No gallops, murmurs, or rubs. Normal PMI, no JVD. No pulse deficits. Respiratory: Lungs have equal breath sounds bilaterally, clear to auscultation and percussion. No rales, rhonchi or wheezes noted. No increased work of breathing, no retractions or nasal flaring. Abdomen/GI: Soft, non-tender, with normal bowel sounds. No distension or tympany. No guarding or rebound. No evidence of tenderness throughout. Back: No spinal tenderness. No costovertebral tenderness. Full range of motion. MS/ Extremity: Pulses equal, no cyanosis. Neurovascular intact. Full, normal range of motion. Neuro: Awake and alert, GCS 15, oriented to person, place, time, and situation. Motor strength 5/5 in all extremities. Sensory grossly intact. Normal gait. 13:42 Skin: abscess, that is small, of the left inner thigh, with induration, no fluctuance or fluid collection seen on ultrasound, cellulitis, that is mild, Vital Signs: 13:42 BP 114 / 71; Pulse 100; Resp 17; Temp 97.7; Pulse Ox 100% ; Weight 95.25 kg; Height 5 ll1 ft. 5 in. ; Pain 7/10; 14:20 BP 117 / 74; Pulse 80; Resp 18; Pulse Ox 99% on R/A; rs5 13:42 Body Mass Index 34.95 (95.25 kg, 165.1 cm) ll1 13:42 Pain Scale: Adult ll1 MDM: 13:40 Patient medically screened. [facility] 13:42 Differential diagnosis: Abscess, cellulitis. Data reviewed: vital signs, nurses notes. [facility] Historians other than the Patient: Parent: mom. Counseling: I had a detailed discussion with the patient and/or guardian regarding the historical points, exam findings, and any diagnostic results supporting the discharge/admit diagnosis, to return to the emergency department if symptoms worsen or persist or if there are any questions or concerns that arise at home. ED course: Advised to return to the ER if swelling worsens, fever develops, or abscess forms ahead. Administered Medications: No medications were administered Disposition Summary: 07/07/23 14:14 Discharge Ordered Notes: Location: Home [facility] Problem: new [facility] Symptoms: are unchanged [facility] Condition: Stable [facility] Diagnosis - Cutaneous abscess of groin [facility] Followup: [facility] - With: Private Physician - When: 2 - 3 days - Reason: Recheck today's complaints Discharge Instructions: - Discharge Summary Sheet [facility] - Skin Abscess [facility] - Incision and Drainage [facility] Forms: - Medication Reconciliation Form [facility] - Antibiotic Education [facility] - Patient Portal Instructions [facility] - Leadership Thank You Letter [facility] Prescriptions: - mupirocin 2 % Topical ointment - apply 1 application TOPICAL route 3 times per day for 7 days; 22 gram; Refills: jh7 0, Product Selection Permitted - Bactrim DS 800-160 mg Oral Tablet - take 1 tablet ORAL route every 12 hours for 10 days; 20 tablet; Refills: 0, jh7 Product Selection Permitted Signatures: Fany Mata, RN RN ll1 Kathy Lombardi, EMULSIFICATION OPERATOR EMULSIFICATION OPERATOR 7
[2023-07-07 15:02] VITALS: BP 114/71; TEMP 97.7; O2SAT 100
== END 2023-07-07 14:31 | disposition home or self-care (01) ==
LOC: ER 13:34
DX: L02.214 Cutaneous abscess of groin (principal); L03.314 Cellulitis of groin
CPT/HCPCS: 99283